=== PATIENT | male | born 1975 | race American Indian/Alaskan Native ===

== ENCOUNTER 2022-06-21 22:07 | Emergency (ER) | payer SELFPAY ==
[2022-06-22 00:01] LABS: Basophils # (Auto) 0.1 K/mm3 (0.0-0.1); Basophils % (Auto) 0.7 % (0.0-1.8); Eosinophils # (Auto) 0.1 K/mm3 (0.0-0.4); Eosinophils % (Auto) 0.8 % (0.0-4.3); Hemoglobin 18.9 gm/dl (11.8-15.2); Lymphocytes # (Auto) 2.2 K/mm3 (1.2-5.4); Lymphocytes % (Auto) 26.3 % (13.4-35.0); Mean Corpuscular HGB Conc 35 % (32-34); Mean Corpuscular Volume 94 fl (84-94); Monocytes # (Auto) 0.7 K/mm3 (0.0-0.8); Monocytes % (Auto) 8.8 % (0.0-7.3); Platelet Count 287 K/mm3 (140-440); Red Blood Count 5.73 M/mm3 (3.65-5.03)
[2022-06-22 00:13] LABS: BUN/Creatinine Ratio 11; Blood Urea Nitrogen 13 mg/dL (9-20); Calcium 9.3 mg/dL (8.4-10.2); Hemolysis Index 6
[2022-06-22] MEDS ORDERED: SODIUM CHLORIDE 0.9% 1000 ML 1,000 ML IV ONE (03:34)
[2022-06-22] MEDS ORDERED: PANTOPRAZOLE 40 MG INJ IV ONE (03:34)
[2022-06-22] MEDS ORDERED: MORPHINE 4 MG/1 ML INJ IV ONE (03:34)
[2022-06-22] MEDS ORDERED: ONDANSETRON 4 MG/2 ML INJ IV ONE (03:34)
--- NOTE | 2022-06-22 03:36 | Emergency Department Report ---
<RENAY FLORES - Last Filed: 06/22/22 05:49> ED General Adult HPI - General Chief complaint: Abdominal Pain Stated complaint: VOMITING,CHEST PAIN,ABD PAIN,NAUSEA Time Seen by Provider: 06/22/22 03:33 Source: patient, RN notes reviewed Mode of arrival: Ambulatory Limitations: No Limitations - History of Present Illness Initial comments: The patient was evaluated in the emergency department for symptoms described in the history of present illness. He/she was evaluated in the context of the global COVID-19 pandemic, which necessitated consideration that the patient might be at risk for infection with the virus that causes COVID-19. Institutional protocols and algorithms that pertain to the evaluation of patients at risk for COVID-19 are in a state of rapid change based on information released by regulatory bodies including the CDC and federal and state organizations. These policies and algorithms were followed during the patient's care in the emergency department. Please note that these policies, procedures and recommendations changed on a rapid basis. Patient is a 46-year-old gentleman, who presents to the department today with a complaint of a few days of nausea, vomiting, and right-sided abdominal pain. Positive fever. Positive weakness. No testicular pain. He is not sure if he is having dysuria. He does not smoke cigarettes or use marijuana. -: Gradual, days(s) Location: abdomen Quality: aching Consistency: constant Improves with: movement, rest - Related Data Previous Rx's Medication Instructions Recorded Last Taken Type Amoxicillin [Trimox CAP] 2 cap PO BID #40 capsule 07/01/14 Unknown Rx HYDROcodone/APAP 5-325 [[place] 1 each PO Q6HR PRN #14 tablet 07/01/14 Unknown Rx 5/325] Ibuprofen [Motrin 800 MG tab] 800 mg PO Q8H #30 tablet 07/01/14 Unknown Rx Acetaminophen [Tylenol] 650 mg PO Q12H #20 cap 06/22/22 Unknown Rx Pantoprazole Sodium [Protonix] 40 mg PO DAILY 30 Days #30 06/22/22 Unknown Rx Allergies Allergy/AdvReac Type Severity Reaction Status Date / Time No Known Allergies Allergy Verified 07/01/14 04:44 ED Review of Systems Constitutional: chills, fever, malaise, weakness Eyes: denies: eye discharge ENT: denies: epistaxis Respiratory: denies: cough Cardiovascular: denies: chest pain Gastrointestinal: abdominal pain, nausea, vomiting Genitourinary: denies: dysuria, testicular pain Neurological: weakness Hematological/Lymphatic: denies: easy bleeding ED Past Medical Hx - Surgical History Additional Surgical History: l) knee surgery - Social History Smoking Status: Never Smoker Substance Use Type: None - Medications Home Medications: Home Medications Medication Instructions Recorded Confirmed Last Taken Type Amoxicillin [Trimox CAP] 2 cap PO BID #40 capsule 07/01/14 Unknown Rx HYDROcodone/APAP 5-325 [[place] 1 each PO Q6HR PRN #14 tablet 07/01/14 Unknown Rx 5/325] Ibuprofen [Motrin 800 MG tab] 800 mg PO Q8H #30 tablet 07/01/14 Unknown Rx Acetaminophen [Tylenol] 650 mg PO Q12H #20 cap 06/22/22 Unknown Rx Pantoprazole Sodium [Protonix] 40 mg PO DAILY 30 Days #30 06/22/22 Unknown Rx ED Physical Exam - General Limitations: No Limitations General appearance: alert, anxious, obese - Head Head exam: Present: atraumatic, normocephalic - Eye Eye exam: Present: normal appearance, EOMI. Absent: nystagmus - ENT ENT exam: Present: normal exam, normal orophraynx, mucous membranes moist, normal external ear exam - Neck Neck exam: Present: normal inspection, full ROM. Absent: tenderness, meningismus - Respiratory Respiratory exam: Present: normal lung sounds bilaterally. Absent: respiratory distress, wheezes, rales, rhonchi, stridor, decreased breath sounds - Cardiovascular Cardiovascular Exam: Present: regular rate, normal rhythm, normal heart sounds. Absent: bradycardia, tachycardia, irregular rhythm, systolic murmur, diastolic murmur, rubs, gallop - GI/Abdominal GI/Abdominal exam: Present: soft, tenderness, other (There is right upper quadrant tenderness. There is right flank tenderness). Absent: distended, guarding, rebound, rigid, pulsatile mass - Rectal Rectal exam: Present: deferred - Extremities Exam Extremities exam: Present: normal inspection, full ROM, other (2+ pulses noted in the bilateral upper and lower extremities. There is no palpable cord. negative Homans sign. Muscular compartments are soft. The pelvis is stable.). Absent: pedal edema, calf tenderness - Back Exam Back exam: Present: normal inspection, full ROM. Absent: tenderness, CVA tenderness (R), CVA tenderness (L), paraspinal tenderness, vertebral tenderness - Neurological Exam Neurological exam: Present: alert, oriented X3, other (No facial droop. Tongue midline. Extraocular movements intact bilaterally. Facial sensation intact to light touch in V1, V2, V3 distribution bilaterally. 5 and a 5 strength in 4 extremities. Sensation intact to light touch in 4 extremities.). Absent: motor sensory deficit - Psychiatric Psychiatric exam: Present: anxious - Skin Skin exam: Present: warm, dry, intact, normal color. Absent: rash ED Course - Reevaluation(s) Reevaluation #1: 06/22/22 04:45 Differential diagnosis, including but not limited to: Colitis, diverticulitis, appendicitis, renal colic, cholecystitis, inflammatory bowel disease Assessment and plan: 46-year-old gentleman with right-sided abdominal pain, and low-grade fever. He is tender in the right upper quadrant. Place patient on lunchroom monitor, obtain appropriate laboratory studies, EKG, urinalysis, right upper quadrant ultrasound, and CT scan abdomen pelvis. Reassess after initial diagnostics have resulted. 06/22/22 05:20 Patient resting comfortably in stretcher. Urinalysis and right upper quadrant ultrasound pending. CT scan abdomen pelvis unremarkable at this time. Care will be transferred to the oncoming ER provider, Dr Jean Baptiste, to follow-up on urinalysis, right upper quadrant ultrasound, and reassess for final disposition 06/22/22 05:49 ED Medical Decision Making - Lab Data Result diagrams: 06/21/22 23:30 06/21/22 23:30 Vital Signs 06/21/22 06/22/22 23:12 03:33 Temperature 100 F H Pulse Rate 76 83 Respiratory 18 12 Rate Blood Pressure 163/103 185/123 [Right] O2 Sat by Pulse 96 99 Oximetry Lab Results 06/21/22 06/21/22 06/21/22 Range/Units 23:30 23:30 23:30 WBC 8.5 (4.5-11.0) K/mm3 RBC 5.73 H (3.65-5.03) M/mm3 Hgb 18.9 H (11.8-15.2) gm/dl Hct 54.0 H (35.5-45.6) % MCV 94 (84-94) fl MCH 33 H (28-32) pg MCHC 35 H (32-34) % RDW 14.0 (13.2-15.2) % Plt Count 287 (140-440) K/mm3 Lymph % (Auto) 26.3 (13.4-35.0) % [place] % (Auto) 8.8 H (0.0-7.3) % Eos % (Auto) 0.8 (0.0-4.3) % Baso % (Auto) 0.7 (0.0-1.8) % Lymph # (Auto) 2.2 (1.2-5.4) K/mm3 [place] # (Auto) 0.7 (0.0-0.8) K/mm3 Eos # (Auto) 0.1 (0.0-0.4) K/mm3 Baso # (Auto) 0.1 (0.0-0.1) K/mm3 Seg Neutrophils % 63.4 (40.0-70.0) % Seg Neutrophils # 5.4 (1.8-7.7) K/mm3 Sodium 136 L (137-145) mmol/L Potassium 4.0 (3.6-5.0) mmol/L Chloride 97.2 L (98-107) mmol/L Carbon Dioxide 26 (22-30) mmol/L Anion Gap 17 mmol/L BUN 13 (9-20) mg/dL Creatinine 1.2 (0.8-1.3) mg/dL Estimated GFR > 60 ml/min BUN/Creatinine Ratio 11 % Glucose 87 (75-100) mg/dL Calcium 9.3 (8.4-10.2) mg/dL Lipase 22 (13-60) units/L - EKG Data -: EKG Interpreted by Sd EKG shows normal: sinus rhythm Rate: normal - EKG Data When compared to previous EKG there are: previous EKG unavailable 06/22/22 04:44 The EKG is interpreted at 03: 4 0 Sinus rhythm, with a rate of 71 bpm. Normal axis, normal P wave axis, normal intervals, motion artifact, abnormal EKG, not a STEMI. There is no prior for comparison. - Radiology Data Radiology results: pending, report reviewed, image reviewed CT ABDOMEN AND PELVIS WITH CONTRAST INDICATION / CLINICAL INFORMATION: Acute abdominal pain, with nausea and vomiting 100ml of [id number]. TECHNIQUE: Axial CT images were obtained through the abdomen and pelvis after IV contrast. All CT scans at this location are performed using CT dose reduction for ALARA by means of automated exposure control. COMPARISON: None available. FINDINGS: LOWER CHEST: No significant abnormality of the imaged chest. LIVER: No focal lesion. No acute findings. GALLBLADDER / BILE DUCTS: No significant abnormality. Biliary ducts grossly unremarkable. SPLEEN: No significant abnormality. PANCREAS: No significant abnormality. ADRENALS: No significant abnormality. KIDNEYS/URETERS: No stones or hydronephrosis. No solid renal lesion. STOMACH / DUODENUM / SMALL BOWEL: The stomach, duodenum, and small bowel demonstrate no significant abnormality. No specific abnormality of the mesentery demonstrated. COLON: Diverticulosis without acute inflammation. APPENDIX: Absent PERITONEUM: No free air or free fluid are present within the abdomen or pelvis. LYMPH NODES: No significant adenopathy. AORTA / ARTERIES: No significant abnormality. IVC / VEINS: No significant abnormality. URINARY BLADDER: No significant abnormality. REPRODUCTIVE ORGANS: No significant abnormality. SKELETAL SYSTEM: No significant abnormality. ADDITIONAL ABDOMINAL/PELVIC FINDINGS: None. IMPRESSION: 1. No imaging findings to suggest etiology of the provided symptoms. Signer Name: Rudy Garcia II, MD Signed: 06/22/2022 4:01 AM Workstation Name: [email or web address] ED Disposition Clinical Impression: Abdominal discomfort Disposition: HOME / SELF CARE / HOMELESS Condition: Good Instructions: Pain Without a Known Cause Additional Instructions: MAKE A FOLLOW UP APPOINTMENT WITH PRIMARY CARE PROVIDER OF YOUR CHOICE TO BE SEEN WITHIN 3 DAYS FOR FURTHER OUTPATIENT EVALUATION SUCH POSSIBLE UPPER ENDOSCOPY. Prescriptions: Pantoprazole Sodium [Protonix] 40 mg PO DAILY 30 Days #30 Acetaminophen [Tylenol] 650 mg PO Q12H #20 cap Forms: Work/School Release Form(ED) <CHONG PAGE - Last Filed: 06/22/22 08:24> ED Review of Systems ROS: Stated complaint: VOMITING,CHEST PAIN,ABD PAIN,NAUSEA Other details as noted in HPI ED Course Vital Signs 06/21/22 06/22/22 23:12 03:33 Temperature 100 F H Pulse Rate 76 83 Respiratory 18 12 Rate Blood Pressure 163/103 185/123 [Right] O2 Sat by Pulse 96 99 Oximetry ED Medical Decision Making - Lab Data Result diagrams: 06/21/22 23:30 06/21/22 23:30 - Medical Decision Making BIOCHEMICALLY AND RADIOGRAPHICALLY WITH NO ACUTE FINDING. WILL GIVE GI COCKTAIL AND PPI. INFORMED TO MAKE A FOLLOW UP APPOINTMENT WITH PCP OF HIS CHOICE TO BE SEEN WITHIN 3 DAYS FOR FURTHER OUTPATIENT EVALUATION SUCH POSSIBLE ENDOSCOPY. PATIENT UNDERSTOOD. Critical care attestation.: If time is entered above; I have spent that time in minutes in the direct care of this critically ill patient, excluding procedure time. ED Disposition Is pt being admited?: No Does the pt Need Aspirin: No Time of Disposition: 08:24
[2022-06-22 04:50] LABS: Alanine Aminotransferase 27 units/L (7-56); Albumin 4.7 g/dL (3.9-5); Bilirubin,Direct 0.4 mg/dL (0-0.2)
--- NOTE | 2022-06-22 05:06 | Cat Scan Report ---
CT ABDOMEN AND PELVIS WITH CONTRAST INDICATION / CLINICAL INFORMATION: Acute abdominal pain, with nausea and vomiting 100ml of [id number]. TECHNIQUE: Axial CT images were obtained through the abdomen and pelvis after IV contrast. All CT sc ans at this location are performed using CT dose reduction for ALARA by means of automated exposure c ontrol. COMPARISON: None available. FINDINGS: LOWER CHEST: No significant abnormality of the imaged chest. LIVER: No focal lesion. No acute findings. GALLBLADDER / BILE DUCTS: No significant abnormality. Biliary ducts grossly unremarkable. SPLEEN: No significant abnormality. PANCREAS: No significant abnormality. ADRENALS: No significant abnormality. KIDNEYS/URETERS: No stones or hydronephrosis. No solid renal lesion. STOMACH / DUODENUM / SMALL BOWEL: The stomach, duodenum, and small bowel demonstrate no significant a bnormality. No specific abnormality of the mesentery demonstrated. COLON: Diverticulosis without acute inflammation. APPENDIX: Absent PERITONEUM: No free air or free fluid are present within the abdomen or pelvis. LYMPH NODES: No significant adenopathy. AORTA / ARTERIES: No significant abnormality. IVC / VEINS: No significant abnormality. URINARY BLADDER: No significant abnormality. REPRODUCTIVE ORGANS: No significant abnormality. SKELETAL SYSTEM: No significant abnormality. ADDITIONAL ABDOMINAL/PELVIC FINDINGS: None. IMPRESSION: 1. No imaging findings to suggest etiology of the provided symptoms. Signer Name: Rudy Garcia II, MD Signed: 06/22/2022 5:01 AM Workstation Name: [id number]
[2022-06-22] MEDS ORDERED: ACETAMINOPHEN 500 MG TAB PO ONE (05:19)
--- NOTE | 2022-06-22 06:46 | Ultrasound Report ---
ULTRASOUND ABDOMEN, LIMITED INDICATION / CLINICAL INFORMATION: Right upper quadrant abdominal pain, with nausea a. COMPARISON: CT abdomen and pelvis 06/22/2022; 0433 hours TECHNIQUE: Using transcutaneous protocol multiple grayscale and color Doppler images were captured an d stored of the pancreas, liver, aorta, inferior vena cava, gallbladder, common bile duct, and right kidney. FINDINGS: PANCREAS: Visualized portion shows no significant abnormality. AORTA: Longitudinal images of the aorta demonstrate no significant abnormality. IVC: Longitudinal images of the inferior vena cava demonstrate no significant abnormality. LIVER: No significant abnormality. Normal hepatopedal blood flow in the main portal vein. GALLBLADDER: No significant abnormality. BILE DUCTS: No significant abnormality. Common bile duct measures 2.7 mm. RIGHT KIDNEY: Right kidney is not imaged. FREE FLUID: None. ADDITIONAL FINDINGS: None. IMPRESSION: 1. No interval acute findings. Signer Name: Rudy Garcia II, MD Signed: 06/22/2022 6:41 AM Workstation Name: [id number]
[2022-06-22 06:58] LABS: Color,Urine Straw (Yellow)
[2022-06-22 06:59] LABS: WBC,Urine < 1.0 /HPF (0.0-6.0)
[2022-06-22 07:05] LABS: Amphetamine Screen,Urine Negative; Benzodiazepines Screen,Urine Negative; Cannabinoid Screen,Urine Negative; Cocaine Screen,Urine Negative; Methadone Screen,Urine Negative; Opiate Screen,Urine Negative
[2022-06-22] MEDS ORDERED: ALUM-MAG HYDROXIDE-SIMETHICONE 200-200-20MG/5ML ORAL LIQD 30 ML PO ONE (08:20)
[2022-06-22] MEDS ORDERED: LIDOCAINE VISCOUS 2% 15 ML ORAL LIQD PO ONE (08:20)
[2022-06-22 10:53] VITALS: BP 168/92
--- NOTE | 2022-06-24 17:13 | Electrocardiograph Report ---
[facility] Test Date: 2022-06-22 Test Time: 03:27:25 Pat Name: THERESA BONILLA Department: Room: Gender: M Manager Planning: SHIRA : 1975 Requested By: RENAY FLORES Order Number: [id number] Reading MD: Nelson Nick Measurements Intervals [place] Rate: 71 P: 61 IA: 147 QRS: 11 QRSD: 91 T: 34 QT: 386 QTc: 419 Interpretive Statements Sinus rhythm No previous ECG available for comparison Electronically Signed On 06-24-2022 17:13:12 EDT by Nelson Nick
== END 2022-06-22 10:52 | disposition home or self-care (01) ==
LOC: ED 22:07
DX: R10.9 Unspecified abdominal pain (principal); Z79.899 Other long term (current) drug therapy
CPT/HCPCS: 36415; 74177; 76705; 80048; 80076; 80307; 81001; 82550; 83690; 83735; 84484; 85025; 93005; 96361; 96374; 96375; 99284; C9113; J2270; J2405; J7030; Q9967